=== PATIENT | female | born 2000 | race Hispanic/Latino ===

== ENCOUNTER 2021-08-26 11:19 | Outpatient (CLI) | payer SELFPAY ==
[2021-08-26 11:57] VITALS: BP 103/56
--- NOTE | 2021-08-26 13:40 | Ultrasound Report ---
OB Ultrasound Biophysical profile HISTORY: BPP, MICHAELLE, RULE OUT ABRUPTION. TECHNIQUE: Grayscale and color imaging performed. COMPARISON: None FINDINGS: Single viable intrauterine gestation with cephalic presentation. MICHAELLE is 23 cm. Heart rate i s 150 bpm. Placenta position is posterior. On biophysical profile, the fetus received a score of 2 out of 2 for breathing, movement, posture/ton e, and MIHCAELLE. Total score was 8 out of 8. IMPRESSION: 1. Single viable intrauterine gestation as above. No evidence of placental abruption. 2. Normal BPP. Signer Name: Colin Bailey MD Signed: 08/26/2021 1:35 PM Workstation Name: [id number]
--- NOTE | 2021-08-26 13:40 | Ultrasound Report ---
OB Ultrasound Biophysical profile HISTORY: BPP, MICHAELLE, RULE OUT ABRUPTION. TECHNIQUE: Grayscale and color imaging performed. COMPARISON: None FINDINGS: Single viable intrauterine gestation with cephalic presentation. MICHAELLE is 23 cm. Heart rate i s 150 bpm. Placenta position is posterior. On biophysical profile, the fetus received a score of 2 out of 2 for breathing, movement, posture/ton e, and MICHAELLE. Total score was 8 out of 8. IMPRESSION: 1. Single viable intrauterine gestation as above. No evidence of placental abruption. 2. Normal BPP. Signer Name: Colin Bailey MD Signed: 08/26/2021 1:35 PM Workstation Name: [id number]
== END 2021-08-26 13:53 | disposition home or self-care (01) ==
LOC: TRG 11:19 → APU 11:21 → TRG 13:53
PROVIDERS: ATTEND Obstetrics & Gynecology
DX: Z34.93 Encounter for supervision of normal pregnancy, unspecified, third trimester (principal); Z3A.38 38 weeks gestation of pregnancy
CPT/HCPCS: 59025; 76815; 76819